=== PATIENT | female | born 1985 | race American Indian/Alaskan Native ===

== ENCOUNTER 2017-12-08 10:00 | Emergency (ER) | payer OTHER, MEDICARE ==
[2017-12-08 10:40] VITALS: BP 118/87
--- NOTE | 2017-12-08 12:50 | Emergency Department Report ---
ED Recheck HPI - General Chief Complaint: Medical Clearance Stated Complaint: MENTAL HEALTH Time Seen by Provider: 12/08/17 12:43 Source: patient Mode of arrival: Ambulatory Limitations: No Limitations - History of Present Illness Initial Comments: This is a 32-year-old female nontoxic, well nourished in appearance, no acute signs of distress presents to the ED with c/o of for medication refill. Patient stated that she is currently taking gabapentin, Xanax and hydroxyzine for anxiety. Patient stated the past few months she has been out of her medication as she just recently moved. She does have a primary care doctor in December. Patient denies any suicidal or homicidal medications. Patient denies any fever, chills, nausea, vomiting, chest pain, shortness of breath, headache or stiff neck. Patient denies any allergies. Medical history includes anxiety. MD Complaint: medication refill request -: month(s) (3) Symptoms Since Prior Visit: no new symptoms Associated Symptoms: none. denies: fever, chills, chest pain, shortness of breath, rash, malaise, [place], abdominal pain - Related Data Previous Rx's Medication Instructions Recorded Last Taken Type ALPRAZolam [Xanax] 1 mg PO TID PRN #12 tablet 12/08/17 Unknown Rx Gabapentin [Neurontin] 100 mg PO Q8HR PRN #12 capsule 12/08/17 Unknown Rx hydrOXYzine HCl [Hydroxyzine HCl] 25 mg PO DAILY PRN #12 tablet 12/08/17 Unknown Rx Allergies Allergy/AdvReac Type Severity Reaction Status Date / Time No Known Allergies Allergy Verified 12/08/17 10:40 ED Review of Systems ROS: Stated complaint: MENTAL HEALTH Other details as noted in HPI Constitutional: denies: chills, fever Eyes: denies: eye pain, eye discharge, vision change ENT: denies: ear pain, throat pain Respiratory: denies: cough, shortness of breath, wheezing Cardiovascular: denies: chest pain, palpitations Endocrine: no symptoms reported Gastrointestinal: denies: abdominal pain, nausea, diarrhea Genitourinary: denies: urgency, dysuria, discharge Musculoskeletal: denies: back pain, joint swelling, arthralgia Skin: denies: rash, lesions Neurological: denies: headache, weakness, paresthesias Psychiatric: anxiety. denies: depression, homicidal thoughts, suicidal thoughts Hematological/Lymphatic: denies: easy bleeding, easy bruising ED Past Medical Hx - Past Medical History Previous Medical History?: Yes Hx Psychiatric Treatment: Yes (anxiety) - Social History Smoking Status: Current Every Day Smoker Substance Use Type: None - Medications Home Medications: Home Medications Medication Instructions Recorded Confirmed Last Taken Type ALPRAZolam [Xanax] 1 mg PO TID PRN #12 tablet 12/08/17 Unknown Rx Gabapentin [Neurontin] 100 mg PO Q8HR PRN #12 capsule 12/08/17 Unknown Rx hydrOXYzine HCl [Hydroxyzine HCl] 25 mg PO DAILY PRN #12 tablet 12/08/17 Unknown Rx ED Physical Exam - General Limitations: No Limitations General appearance: alert, in no apparent distress - Head Head exam: Present: atraumatic, normocephalic - Eye Eye exam: Present: normal appearance - ENT ENT exam: Present: mucous membranes moist - Neck Neck exam: Present: normal inspection - Respiratory Respiratory exam: Present: normal lung sounds bilaterally. Absent: respiratory distress - Cardiovascular Cardiovascular Exam: Present: regular rate, normal rhythm, normal heart sounds. Absent: irregular rhythm, systolic murmur, diastolic murmur, rubs, gallop - GI/Abdominal GI/Abdominal exam: Present: soft, normal bowel sounds - Extremities Exam Extremities exam: Present: normal inspection, full ROM - Back Exam Back exam: Present: normal inspection, full ROM - Neurological Exam Neurological exam: Present: alert, oriented X3, normal gait - Psychiatric Psychiatric exam: Present: normal affect, normal mood, anxious. Absent: depressed, agitated, flat affect, manic, homicidal ideation, suicidal ideation - Skin Skin exam: Present: warm, dry, intact, normal color. Absent: rash ED Course Vital Signs 12/08/17 10:34 Temperature 98.9 F Pulse Rate 76 Respiratory 16 Rate Blood Pressure 118/87 O2 Sat by Pulse 100 Oximetry - Reevaluation(s) Reevaluation #1: 12/08/17 12:53 Patient is speaking in full sentences with no signs of distress noted. Critical care attestation.: If time is entered above; I have spent that time in minutes in the direct care of this critically ill patient, excluding procedure time. ED Disposition Clinical Impression: Medication refill, Acute anxiety Disposition: DC-01 TO HOME OR SELFCARE Is pt being admited?: No Does the pt Need Aspirin: No Condition: Stable Instructions: Alprazolam (By mouth), Anxiety (ED) Additional Instructions: Follow-up with a primary care doctor in 3-5 days or if symptoms worsen and continue return to emergency room as soon as possible. Do not operate any machinery while taking gabapentin, Xanax or Hydroxyzine Prescriptions: ALPRAZolam [Xanax] 1 mg PO TID PRN #12 tablet PRN Reason: Anxiety Gabapentin [Neurontin] 100 mg PO Q8HR PRN #12 capsule PRN Reason: Pain , Severe (7-10) hydrOXYzine HCl [Hydroxyzine HCl] 25 mg PO DAILY PRN #12 tablet PRN Reason: Anxiety Referrals: PRIMARY CARE, [Primary Care Provider] - 3-5 Days PEREZ FOURNIER MD [Staff Physician] - 3-5 Days [facility] [Outside] - 3-5 Days [facility] [Outside] - 3-5 Days
== END 2017-12-08 13:22 | disposition home or self-care (01) ==
LOC: ED 10:00 → EDBD 10:00 → ED 13:22
DX: F41.9 Anxiety disorder, unspecified (principal); F17.200 Nicotine dependence, unspecified, uncomplicated; Z76.0 Encounter for issue of repeat prescription
CPT/HCPCS: 99282